=== PATIENT | female | born 1975 | race Caucasian/White ===

== ENCOUNTER 2020-03-19 05:05 | Inpatient (IN) | payer OTHER, SELFPAY ==
--- NOTE | 2020-03-19 05:06 | ADMGEN ---
This patient, Urmila Kahn, was admitted to Medical Room 250-01. Patient/family oriented to hospital policies and general routines including ID bracelet, bed and alarms, visiting hours, pain management, procedures, bathroom and other care routines, personal items, smoking policy, room service/diet, and visiting hours. Valuables list has been completed. Information on how to activate the Rapid Response Team has been discussed. Patient/Family are encouraged to report perceived risks to care and to ask questions if they do not understand what they are told or what they should do.
--- NOTE | 2020-03-19 05:13 | PM.IMHP ---
H&P: HPI History of Present Illness Date/Time: 03/19/20 05:13 Chief complaint: Perianal cellulitis r/o abscess Narrative: This is a morbidly obese 44-year-old diabetic female who presented to the hospital as a direct admission from [place] secondary to a skin infection involving her left buttocks and extending forward towards her vagina. The patient isn't sure how many days she has had the infection but noticed it a few days ago as she started to have pain. She has also had pustular drainage from her wound. Associated symptoms include nausea and mild shortness of breath. She also reports wheezing. She denies any fevers, chills, chest pain, vomiting, diarrhea, or rectal bleeding. The patient was evaluated and found to be septic with tachycardia and an elevated WBC of almost 18,000. She was treated with IV antibiotics and General Surgery, Dr. Delgado has been consulted and agreed to evaluate the patient for possible incision and drainage of her wound. CT abd/pelvis was performed which did not demonstrate necrotizing fascitis. The patient has no other complaints. Review of Systems Review of Systems: All systems reviewed & are unremarkable except as noted in HPI and below PMFSH Past Medical History Medical History (Updated 03/19/20 @ 05:27 by Vinh Samaniego MD) Diabetes mellitus Surgical History Surgical History (Updated 03/19/20 @ 05:23 by Vinh Samaniego MD) H/O tympanostomy Family History Family History (Updated 03/19/20 @ 05:46 by Dexter Carranza RN) Other Unknown family medical history Social History Social History Smoking packs per day: 1 Smoking cigarettes per day: 20.0 Years smoked: 26 Smoking pack-years: 26.00 Smoking status: Current every day smoker Tobacco type: cigarettes Alcohol intake: never Substance use: never Spiritual care concerns: No Meds Home Medications and Allergies Home Medications Medication Instructions Recorded Confirmed Type No Home Medications 03/19/20 03/19/20 History Allergies Allergy/AdvReac Type Severity Reaction Status Date / Time No Known Allergies Allergy Verified 03/19/20 06:02 Exam Const: General: cooperative, healthy appearing, no acute distress, alert and awake Nutritional Appearance: well nourished Orientation/consciousness: patient oriented x3 HENMT: Head: normal to inspection General nose exam: Normal external nose present Face and sinus: normal facial exam Mouth: Yes Normal oral and palatal mucosa present and Yes other (Missing teeth++ ) Eyes: Pupils: Equal, round and reactive pupils present EOM: EOMs intact bilaterally Neck: Neck: supple and no JVD Thyroid: thyroid normal Lymphatic: lymphadenopathy not noted Resp: Effort & Inspection: normal respiratory effort Auscultation: clear to auscultation bilaterally Cardio: Rate: tachycardic Rhythm: regular rhythm Heart sounds: no murmurs GI: Inspection: normal to inspection Auscultation: normal bowel sounds Skin: General skin exam: erythema (Large area of erythema involving the left buttock with draining wound+ ) Neuro: General: patient oriented x3 Cranial nerves: Yes CN's II-XII intact bilaterally and Yes Equal, round and reactive pupils present Speech: normal speech Motor exam (neuro): 5/5 motor strength present throughout Sensory Exam: normal sensation Extrem: General: normal to inspection and no edema Psych: Mental Status: mental status grossly normal Affect: normal affect Assessment and Plan Assessment and plan (1) Perianal cellulitis: Code(s): K61.0 - Anal abscess Status: Acute Assessment and Plan: r/o perianal abscess - Admit to med-surg, NPO, We will cover for Diabetic cellulitis w/ Vancomycin and Ertapenem IV. Check blood cultures, CBC, CMP. Pain control w/ IV morphine. Antiemetics as needed. General surgery, Dr. Delgado has been consulted and will evaluate the patient for possible I and D of her wound. (2) Sepsis: Quali
[2020-03-19 05:42] LABS: Hematocrit 39.8 % (37.0-47.0); Hemoglobin 12.6 g/dL (12.0-15.0); Mean Corpuscular HGB Conc 31.7 g/dl (32-36); Mean Corpuscular Hemoglobin 27.5 pg (26-34); Mean Corpuscular Volume 86.9 fl (80-100); Mean Platelet Volume 9.4 fl (7.4-10.4); Platelet Count Result 395 k/mm3 (150-375); Red Blood Count 4.58 M/mm3 (4.2-5.4); Red Cell Distribution Width 14.2 % (11.5-14.5); White Blood Count 14.3 K/mm3 (4.5-10.0)
[2020-03-19 05:47] LABS: Lactic Acid Reflex 0.9 mmol/L (0.7-2.1)
[2020-03-19 05:49] LABS: Alanine Aminotransferase 17 U/L (4-35); Albumin Level 2.6 g/dL (3.5-5.1); Alkaline Phosphatase 163 U/L (38-126); Anion Gap 7 mmol/L (8-16); Aspartate Amino Transferase 23 U/L (14-36); Bilirubin,Total 0.5 mg/dL (0.2-1.3); Blood Urea Nitrogen 17 mg/dL (7-17); Calcium 9.3 mg/dL (8.4-10.2); Carbon Dioxide 22 mmol/L (22-30); Chloride 103 mmol/L (98-107); Estimated Glomerular Filt Rate > 60; Glucose 233 mg/dL (65-105); Magnesium 1.7 mg/dL (1.6-2.3); Potassium 3.5 mmol/L (3.4-5.0); Sodium 132 mmol/L (137-145)
[2020-03-19 06:00] VITALS: BP 120/68; PULSE 87; RESP 18; TEMP 36.6; O2SAT 96; BMI 37.8
[2020-03-19 06:23] LABS: Hemoglobin A1C 11.4 % (<5.7)
[2020-03-19] MEDS: SODIUM CHLORIDE 0.9% IV 1,000 ML 120 ML IV CONT (06:49)
[2020-03-19] MEDS: ERTAPENEM 1 GM/NS 50 ML 1 GM/50 ML BAG IVPB (06:49)
[2020-03-19 06:52] LABS: Band Neutrophils Percent 8 % (0-6); Eosinophils Percent Manual 7 % (0-4); Lymphocytes Absolute Manual 3.43 K/mm3 (1.1-4.5); Monocytes Absolute Manual 0.71 K/mm3 (0.1-0.90); Monocytes Percent Manual 5 % (3-9); Neutrophils Absolute Manual 9.15 K/mm3 (1.7-7.2); Neutrophils Percent Manual 56 % (46-73); Total Cells Counted 100
[2020-03-19 06:53] LABS: Platelet Estimate Adequate (Adequate)
[2020-03-19 06:54] LABS: Burr Cells 1+ (NORMAL)
[2020-03-19] MEDS: MORPHINE SULFATE (*CRX) 4 MG/ML INJ IV PUSH ×2 (06:56→13:20)
[2020-03-19] MEDS: INSULIN ASPART (*BKC) 100 UNITS/ML SUB-Q ×3 (07:03→17:14)
[2020-03-19 07:19] LABS: Glucose Point of Care 214 (65-105)
[2020-03-19 07:54] LABS: Glucose Point of Care 226 (65-105)
--- NOTE | 2020-03-19 09:45 | PM.CNGS ---
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 - Other specified inflammation of vagina and vulva Status: Acute Assessment and Plan: will attempt transfer to tertiary care facility as pt will require higher level of postoperative care including multiple surgeries and likely reconstruction, if unable to transfer will need urgent operative intervention c debridement, washout, cont broad spectrum abx for now, currently pt is HD stable (2) Uncontrolled diabetes mellitus: Qualifiers: Diabetes mellitus type: type 2 Glycemic state: with hyperglycemia Qualified Code(s): E11.65 - Type 2 diabetes mellitus with hyperglycemia Code(s): E11.65 - Type 2 diabetes mellitus with hyperglycemia Status: Chronic Assessment and Plan: tight BS control (3) Sepsis: Qualifiers: Sepsis type: sepsis due to unspecified organism Sepsis acute organ dysfunction status: without acute organ dysfunction Qualified Code(s): A41.9 - Sepsis, unspecified organism Code(s): A41.9 - Sepsis, unspecified organism Status: Acute Assessment and Plan: see above History of Present Illness Consult details Consult date: 03/19/20 Reason for consult: wound care Requesting physician: Skyler Munoz MD Narrative: Pt is a 44 y/o F c poorly controlled DM, mild MR presenting from OSH c necrotizing infection L perineal area. Pt reports this has been going on for last 4-5 days and progressively worsening. Pt reports she has been having f/c at home and area burst and started draining about a day ago. Pt reports severe pain in the area, usha c movt, pressure. Pt denies previous episodes. Review of Systems Constitutional: Constitutional: Reports body ache(s), Reports chills, Reports fatigue, Reports lethargy and Reports weakness Eyes: Eyes: Reports no additional eye complaints ENT: Reports system reviewed and no additional complaints, except as documented Cardiovascular: Cardiovascular: Reports no additional cardiovascular complaints Respiratory: Respiratory: Denies chest congestion, Denies cough, Reports dyspnea, Reports dyspnea on exertion and Reports wheezing Gastrointestinal: Gastrointestinal: Reports no additional gastrointestinal complaints and Reports nausea Genitourinary: Genitourinary: Denies hematuria, Reports dysuria and Denies urinary incontinence Musculoskeletal: Musculoskeletal: Reports no additional musculoskeletal complaints Integumentary/Breasts: Skin/Breast: Denies breast pain, Reports erythema, Denies rash and Reports wounds Neurologic: Reports system reviewed and no additional complaints, except as documented Psychiatric: Psychiatric: Reports no additional psychiatric complaints PMFSH Past Medical History Medical History Diabetes mellitus Surgical History Surgical History H/O tympanostomy Family History Family History Other Unknown family medical history Social History Social History Smoking packs per day: 1 Smoking cigarettes per day: 20.0 Years smoked: 26 Smoking pack-years: 26.00 Smoking status: Current every day smoker Tobacco type: cigarettes Alcohol intake: never Substance use: never Spiritual care concerns: No Meds Home Medications and Allergies Home Medications Medication Instructions Recorded Confirmed Type No Home Medications 03/19/20 03/19/20 History Allergies Allergy/AdvReac Type Severity Reaction Status Date / Time No Known Allergies Allergy Verified 03/19/20 06:02 Vital Signs Vital Signs - 24 hr 03/19/20 06:00 Temperature 36.6 C Pulse Rate 87 Respiratory Rate 18 Blood Pressure 120/68 Pulse Oximetry 96 Exam Const: General: in dis
[2020-03-19 11:36] LABS: Glucose Point of Care 264 (65-105)
[2020-03-19 13:28] LABS: Glucose Point of Care 281 (65-105)
[2020-03-19 14:00] VITALS: BP 104/51; PULSE 77; RESP 18; TEMP 36.7; O2SAT 96
[2020-03-19 16:59] LABS: Glucose Point of Care 232 (65-105)
--- NOTE | 2020-03-19 17:30 | PM.TDS ---
Transfer Discharge Sum: Prov Provider Date of admission: 03/19/20 05:05 Primary care physician: HEAD SUGAR REPROCESS OPERATOR PHYSICIAN Admitting clinician: Vinh Samaniego MD Consults: 03/19/20 05:06 Consult to Physician Routine Comment: Consulting Provider: Rozina Delgado call center consultant/MD group to consult: General Surgery - Danny Reason for consultation: perianal abscess Has provider been notified: Yes DS: Admitting Diagnosis Admitting Diagnosis Admitting Diagnosis: Perianal cellulitis r/o abscess DS: Discharge Diagnosis Discharge Diagnosis (1) Perianal cellulitis: Code(s): K61.0 - Anal abscess Status: Acute Assessment and Plan: r/o perianal abscess - antibiotics for Diabetic cellulitis w/ Vancomycin and Ertapenem IV.. Pain control w/ IV morphine. Antiemetics as needed. General surgery, Dr. Delgado has been consulted and and when he examined the patient and and solve the final CT report, suggested the patient be transferred to surgical service with higher level of care for necrotizing fasciitis (2) Sepsis: Qualifiers: Sepsis type: sepsis due to unspecified organism Sepsis acute organ dysfunction status: without acute organ dysfunction Qualified Code(s): A41.9 - Sepsis, unspecified organism Code(s): A41.9 - Sepsis, unspecified organism Status: Acute Assessment and Plan: w/ tachycardia and leukocytosis. Source of sepsis is skin. Continued spectrum antibiotics. Check blood cultures pending and lactic acid was normal (3) Uncontrolled diabetes mellitus: Qualifiers: Diabetes mellitus type: type 2 Glycemic state: with hyperglycemia Qualified Code(s): E11.65 - Type 2 diabetes mellitus with hyperglycemia Code(s): E11.65 - Type 2 diabetes mellitus with hyperglycemia Status: Chronic Assessment and Plan: The patient admits that she doesn't treat her diabetes. Check HgbA1c 11.4 and sliding scale for now Transfer Discharge Sum: Med Medications Active and Home Medications: Home Medications No Home Medications 03/19/20 [History Confirmed 03/19/20] Active Medications Dextrose (Dextrose 50% Syringe) 12.5 gm IV PUSH PRN PRN; Protocol PRN Reason: Hypoglycemia Glucagon (Glucagon For Inj) 1 mg IM PRN PRN; Protocol PRN Reason: Hypoglycemia Acetaminophen (Ofirmev 1,000 Mg Ivpb) 1,000 mg in 100 mls @ 400 mls/hr IVPB Q6H PRN PRN Reason: Pain Rated 4-6 Stop: 03/20/20 05:07 Sodium Chloride (Normal Saline Iv) 1,000 mls @ 120 mls/hr IV CONT .Q8H20M [facility] Last Infusion: 03/19/20 17:15 Dose: 120 mls/hr Documented by: Dextrose (Dextrose 5% 1,000 Ml) 1,000 mls @ 100 mls/hr IVPB PRN PRN; Protocol PRN Reason: Hypoglycemia Ertapenem (Invanz 1 Gm/Ns 50 Ml) 1 gm in 50 mls @ 100 mls/hr IVPB Q24H [facility] Last Infusion: 03/19/20 07:00 Dose: Infused Documented by: Vancomycin HCl (Vancomycin 1,500 Mg/D5w 500 Ml) 1,500 mg in 500 mls @ 333.333 mls/hr IVPB Q12H [facility] Last Infusion: 03/19/20 10:10 Dose: Infused Documented by: Insulin Aspart (Novolog) 2 - 5 units SUB-Q Q6HR [facility]; Protocol Last Admin: 03/19/20 17:14 Dose: 2 units Documented by: Morphine Sulfate (Morphine Sulfate Inj (*Crx)) 4 mg IV PUSH Q4H PRN PRN Reason: Pain Rated 7-10 Stop: 03/20/20 07:00 Last Admin: 03/19/20 13:20 Dose: 4 mg Documented by: Ondansetron HCl (Zofran Inj) 4 mg IV PUSH Q6H PRN PRN Reason: Nausea And Vomiting Stop: 03/20/20 07:00 Transfer Discharge Sum: Hosp Hospital Course Hospital course: Urmila Kahn is a 44 year old female Transferred from [place] ER for treatment of perirectal abscess. Initial CT report was no definite loculated abscess. After arrival here the area was crepitant and necrotic and follow-up call from [place] revealed that subsequent reading of CT scan revealed subcutaneous air. Patient thought to have necrotizing fasciitis and arrangements were made for her to be transferred to higher level care for surgical intervention. she received vancomyci
== END 2020-03-19 18:32 | disposition short-term general hospital (02) | DRG 720 ==
PROVIDERS: Admitting Provider Family Medicine; Visit Provider Internal Medicine
DX: A41.9 Sepsis, unspecified organism (principal); E11.628 Type 2 diabetes mellitus with other skin complications; E11.65 Type 2 diabetes mellitus with hyperglycemia; K61.0 Anal abscess; N76.89 Other specified inflammation of vagina and vulva; F17.210 Nicotine dependence, cigarettes, uncomplicated
CPT/HCPCS: 36415; 80053; 83036; 83605; 83735; 85025; 87040; J1335; J1815; J2270; J3370; J3480; J7030